=== PATIENT | male | born 1960 | race Caucasian/White ===

== ENCOUNTER 2023-10-28 09:24 | Emergency (ER) | payer MEDICARE, OTHER, MEDICAID ==
[2023-10-28] MEDS: DUONEB 0.5-3 MG/3 ml Neb IH ONE (09:32)
[2023-10-28] MEDS ORDERED: DUONEB 0.5-3 MG/3 ml Neb IH ONE (09:32)
[2023-10-28 09:40] VITALS: TEMP 97.8
--- NOTE | 2023-10-28 09:41 | ERPHSYRPT ---
- History of Present Illness Time Seen by Provider: 10/28/23 09:31 Source: patient, family Exam Limitations: no limitations Physician History: Pt became short of breath last pm and came into ER today. He has a Hx of COPD and has been trying to cut down/quit smoking . No CP, No Hx CAD. No hx trauma. No fever. Discussed risks/benefits with pt and available family for testing/ Tx , CBC, CMP, BNP, Trop, Lactate, CXR, EKG, UA, Duoneb, Solumedrol, IV, rocephin, and they wish to proceed and so these are ordered. Results discussed with pt and family. Timing/Duration: yesterday Activities at Onset: none Severity of Dyspnea-Max: moderate Severity of Dyspnea-Current: moderate Possible Cause: occasional episodes, chronic episodes Modifying Factors: Improves With: albuterol inhaler Associated Symptoms: cough, wheezing Allergies/Adverse Reactions: No Known Drug Allergies Allergy (Unverified 10/28/23 09:25) Home Medications: Albuterol 8 gm Mdi Hfa [Ventolin Hfa MDI] 8 gm IH UD 10/28/23 [History] - Review of Systems Constitutional: No Fever, No Chills Eyes: No Symptoms Ears, Nose, & Throat: No Symptoms Respiratory: Cough, Dyspnea Cardiac: No Chest Pain, No Edema, No Syncope Abdominal/Gastrointestinal: No Abdominal Pain, No Nausea, No Vomiting, No Anat rrhea Genitourinary Symptoms: No Dysuria Musculoskeletal: No Back Pain, No Neck Pain Skin: No Rash Neurological: No Dizziness, No Focal Weakness, No Sensory Changes Psychological: No Symptoms Endocrine: No Symptoms Hematologic/Lymphatic: No Symptoms Immunological/Allergic: No Symptoms All Other Systems: Reviewed and Negative - Past Medical History Pertinent Past Medical History: Yes Respiratory History: COPD - Past Surgical History Past Surgical History: No - Nursing Vital Signs Nursing Vital Signs: Initial Vital Signs Pulse Rate 96 H 10/28/23 09:36 Respiratory Rate 24 10/28/23 09:36 O2 Sat by Pulse Oximetry 90 L 10/28/23 09:36 Pain Scale Pain Intensity 0 - Physical Exam General Appearance: no apparent distress, alert Eye Exam: PERRL/EOMI Neck Exam: normal inspection, supple Respiratory Exam: airway intact, rhonchi, wheezing Cardiovascular/Chest Exam: normal heart sounds, regular rate/rhythm Abdominal/Gastrointestinal Exam: soft, No tenderness, No distention, No mass Extremity Exam: non-tender, normal range of motion, normal inspection, no calf tenderness, no pedal edema Peripheral Pulses Exam: carotid (R): 2+, carotid (L): 2+, femoral (R): 2+, femoral (L): 2+, dorsalis-pedis (R): 2+, dorsalis-pedis (L): 2+ Neurologic Exam: alert, oriented x 3, cooperative, capsule filler II-XII nml as tested, nor mal mood/affect, nml cerebellar function, nml station & gait, sensation nml, No motor deficits Skin Exam: normal color, warm, No dry SpO2 Interpretation: borderline oxygenation SpO2: 89 O2 Delivery: Room Air - Course Nursing assessment & vital signs reviewed: Yes EKG Interpreted by Me: Sinus Rhythm, NORMAL AXIS, NORMAL INTERVALS, Non-specific ST Changes, Other (old Q) - Radiology Exams Chest X-ray Interpretation: Interpreted by me, Reviewed by me, Other (calc nodules) - CT Exams Chest CT Interpretation: Tele-radiologist Report, Other (multiple calcified nodules rad concern for TB) Ordered Tests: Active Orders 24 hr Category Date Time Status Blocker And Polisher STAT Care 10/28/23 09:33 Active EKG-ER Only STAT Care 10/28/23 09:31 Active IV Insertion STAT Care 10/28/23 09:31 Active Pulse Oximetry (ED) STAT Care 10/28/23 09:31 Active CHEST 1 VIEW (PORTABLE) Stat Exams 10/28/23 10:08 Taken CHEST WITH CONTRAST [CT] Stat Exams 10/28/23 10:50 Completed CBC W DIFF Stat Lab 10/28/23 09:45 Completed CMP Stat Lab 10/28/23 09:45 Completed CULTURE,URINE Stat Lab 10/28/23 11:53 Received D-DIMER QUANTITATIVE Stat Lab 10/28/23 09:45 Completed Lactic Acid Stat Lab 10/28/23 09:31 Completed NT PRO BNPII Stat Lab 10/28/23 09:45 Completed TROPONIN Q4H Lab 10/28/23 09:45 Completed TROPONIN Q4H Lab 10/28/23 12:50 Completed TROPONIN Q4H Lab 10/28/23 17:45 Ordered UA W/RFX UR CULTURE Stat Lab 06/09/24 11:53 Completed Respiratory Therapy Assessment DAILY RT 10/28/23 09:36 Completed Medication Summary Generic Name Dose Route Start Last Admin Trade Name Christine PRN Reason Stop Dose Admin Sodium Chloride 1,000 mls @ 100 mls/hr 10/28/23 09:45 10/28/23 11:16 Sodium Chloride 0.9% 1000 Ml IV 11/27/23 09:44 100 mls/hr .Q10H MER Administration Discontinued Medications Generic Name Dose Route Start Last Admin Trade Name Christine PRN Reason Stop Dose Admin Albuterol/Ipratropium 3 ml 10/28/23 09:31 10/28/23 09:32 Ipratropium/Albuterol Sulfate 3 Ml Ampul.Neb IH 10/28/23 09:32 3 ml STAT ONE Administration Albuterol/Ipratropium Confirm 10/28/23 09:32 Ipratropium/Albuterol Sulfate 3 Ml Ampul.Neb Administered 10/28/23 09:33 Dose 3 ml IH .STK-MED ONE Methylprednisolone Sodium 0 mg 10/28/23 09:31 10/28/23 11:17 Succinate 125 mg/ Sterile IV 10/28/23 09:32 125 mg Water 2 ml STAT ONE Administration Ceftriaxone Sodium 1 gm in 100 mls @ 200 mls/hr 10/28/23 13:45 10/28/23 14:32 Rocephin 1 Gm / 100 Ml Nacl IV 10/28/23 14:14 Infused STAT ONE Infusion Ceftriaxone Sodium Confirm 10/28/23 13:49 Rocephin 1 Gm / 100 Ml Nacl Administered 10/28/23 13:50 Dose 1 gm in 100 mls @ ud IV .STK-MED ONE Methylprednisolone Sodium Succinate Confirm 10/28/23 11:09 Methylprednis Sod Succ 125 Mg/2 Ml Vial Administered 10/28/23 11:10 Dose 125 mg .ROUTE .STK-MED ONE Sterile Water Confirm 10/28/23 11:09 Water For Injection,Sterile 10 Ml Vial Administered 10/28/23 11:10 Dose 10 ml IJ .STK-MED ONE Lab/Rad Data: Laboratory Result Diagrams 10/28/23 09:45 10/28/23 09:45 Laboratory Results 10/28/23 10/28/23 10/28/23 Range/Units 12:50 11:53 09:45 WBC (4.23-9.07) x10^3/uL RBC (4.63-6.08) x10^6/uL Hgb (13.7-17.5) g/dL Hct (40.1-51.0) % MCV (79.0-92.2) fL MCH (25.7-32.2) pg MCHC (32.3-36.5) g/dL RDW (11.6-14.4) % Plt Count (163-337) x10^3/uL MPV (9.4-12.4) fL Gran % (34.0-67.9) % Immature Gran % (Auto) (0.001-0.429) % Nucleat RBC Rel Count (0.00-0.2) % Eos # (Auto) (0.04-0.54) x10^3/uL Immature Gran # (Auto) (0.001-0.031) x10^3u/L Absolute Lymphs (auto) (1.32-3.57) x10^3/uL Absolute Monos (auto) (0.30-0.82) x10^3/uL Absolute Nucleated RBC (0.00-0.012) x10^3u/L Lymphocytes % (21.8-53.1) % Monocytes % (5.3-12.2) % Eosinophils % (0.8-7.0) % Basophils % (0.2-1.2) % Absolute Granulocytes (1.78-5.38) x10^3/uL Basophils # (0.01-0.08) x10^3/uL D-Dimer (0.0-0.50) mg/L Sodium (135-145) mmol/L Potassium (3.5-5.1) mmol/L Chloride (98-107) mmol/L Carbon Dioxide (22-30) mmol/L Anion Gap (5-15) MEQ/L BUN (9-20) mg/dL Creatinine (0.66-1.25) mg/dL Estimated GFR ML/MIN Glucose (74-106) mg/dL Lactic Acid (0.4-2.0) Calcium (8.4-10.2) mg/dL Total Bilirubin (0.2-1.3) mg/dL AST (17-59) U/L ALT (0-50) U/L Alkaline Phosphatase (38-126) U/L Troponin I < 0.012 (0.000-0.033) ng/mL NT-Pro-B Natriuret Pep (<300) pg/mL Serum Total Protein (6.3-8.2) g/dL Albumin (3.5-5.0) g/dL Urine Color Yellow (Yellow) Urine Appearance Clear (Clear) Urine pH 5.5 (4.6-8.0) Ur Specific [place] >=1.030 A (1.005-1.030) Urine Protein 30 (Negative) Urine Glucose (UA) Negative (Negative) mg/dL Urine Ketones 15 A (Negative) Urine Blood Moderate A (Negative) Urine Nitrite Negative (Negative) Urine Bilirubin Negative (Negative) Urine Urobilinogen 2.0 A (0.2) mg/dL Ur Leukocyte Esterase Negative (Negative) U Hyaline Cast (Auto) NONE SEEN (0-2) /LPF Urine Microscopic RBC 51-100 A (0-5) /HPF Urine Microscopic WBC 3-5 (0-5) /HPF Ur Epithelial Cells None Seen (None Seen) /HPF Urine Bacteria None Seen (None Seen) /HPF Urine Culture Reflexed YES (NO) Influenza Type A Ag NEGATIVE (NEGATIVE) Influenza Type B Ag NEGATIVE (NEGATIVE) RSV (PCR) NEGATIVE (NEGATIVE) SARS-CoV-2 (PCR) NEGATIVE (NEGATIVE) 10/28/23 10/28/23 10/28/23 Range/Units 09:45 09:45 09:45 WBC (4.23-9.07) x10^3/uL RBC (4.63-6.08) x10^6/uL Hgb (13.7-17.5) g/dL Hct (40.1-51.0) % MCV (79.0-92.2) fL MCH (25.7-32.2) pg MCHC (32.3-36.5) g/dL RDW (11.6-14.4) % Plt Count (163-337) x10^3/uL MPV (9.4-12.4) fL Gran % (34.0-67.9) % Immature Gran % (Auto) (0.001-0.429) % Nucleat RBC Rel Count (0.00-0.2) % Eos # (Auto) (0.04-0.54) x10^3/uL Immature Gran # (Auto) (0.001-0.031) x10^3u/L Absolute Lymphs (auto) (1.32-3.57) x10^3/uL Absolute Monos (auto) (0.30-0.82) x10^3/uL Absolute Nucleated RBC (0.00-0.012) x10^3u/L Lymphocytes % (21.8-53.1) % Monocytes % (5.3-12.2) % Eosinophils % (0.8-7.0) % Basophils % (0.2-1.2) % Absolute Granulocytes (1.78-5.38) x10^3/uL Basophils # (0.01-0.08) x10^3/uL D-Dimer 0.76 H* (0.0-0.50) mg/L Sodium (135-145) mmol/L Potassium (3.5-5.1) mmol/L Chloride (98-107) mmol/L Carbon Dioxide (22-30) mmol/L Anion Gap (5-15) MEQ/L BUN (9-20) mg/dL Creatinine (0.66-1.25) mg/dL Estimated GFR ML/MIN Glucose (74-106) mg/dL Lactic Acid (0.4-2.0) Calcium (8.4-10.2) mg/dL Total Bilirubin (0.2-1.3) mg/dL AST (17-59) U/L ALT (0-50) U/L Alkaline Phosphatase (38-126) U/L Troponin I < 0.012 (0.000-0.033) ng/mL NT-Pro-B Natriuret Pep 472 (<300) pg/mL Serum Total Protein (6.3-8.2) g/dL Albumin (3.5-5.0) g/dL Urine Color (Yellow) Urine Appearance (Clear) Urine pH (4.6-8.0) Ur Specific [place] (1.005-1.030) Urine Protein (Negative) Urine Glucose (UA) (Negative) mg/dL Urine Ketones (Negative) Urine Blood (Negative) Urine Nitrite (Negative) Urine Bilirubin (Negative) Urine Urobilinogen (0.2) mg/dL Ur Leukocyte Esterase (Negative) U Hyaline Cast (Auto) (0-2) /LPF Urine Microscopic RBC (0-5) /HPF Urine Microscopic WBC (0-5) /HPF Ur Epithelial Cells (None Seen) /HPF Urine Bacteria (None Seen) /HPF Urine Culture Reflexed (NO) Influenza Type A Ag (NEGATIVE) Influenza Type B Ag (NEGATIVE) RSV (PCR) (NEGATIVE) SARS-CoV-2 (PCR) (NEGATIVE) 10/28/23 10/28/23 10/28/23 Range/Units 09:45 09:45 09:31 WBC 20.0 H (4.23-9.07) x10^3/uL RBC 5.32 (4.63-6.08) x10^6/uL Hgb 15.9 (13.7-17.5) g/dL Hct 46.6 (40.1-51.0) % MCV 87.6 (79.0-92.2) fL MCH 29.9 (25.7-32.2) pg MCHC 34.1 (32.3-36.5) g/dL RDW 13.2 (11.6-14.4) % Plt Count 317 (163-337) x10^3/uL MPV 9.6 (9.4-12.4) fL Gran % 78.6 H (34.0-67.9) % Immature Gran % (Auto) 0.8 H (0.001-0.429) % Nucleat RBC Rel Count 0.0 (0.00-0.2) % Eos # (Auto) 0.16 (0.04-0.54) x10^3/uL Immature Gran # (Auto) 0.15 H (0.001-0.031) x10^3u/L Absolute Lymphs (auto) 1.84 (1.32-3.57) x10^3/uL Absolute Monos (auto) 2.03 H (0.30-0.82) x10^3/uL Absolute Nucleated RBC 0.00 (0.00-0.012) x10^3u/L Lymphocytes % 9.2 L (21.8-53.1) % Monocytes % 10.2 (5.3-12.2) % Eosinophils % 0.8 (0.8-7.0) % Basophils % 0.4 (0.2-1.2) % Absolute Granulocytes 15.72 H (1.78-5.38) x10^3/uL Basophils # 0.08 (0.01-0.08) x10^3/uL D-Dimer (0.0-0.50) mg/L Sodium 138 (135-145) mmol/L Potassium 4.2 (3.5-5.1) mmol/L Chloride 104 (98-107) mmol/L Carbon Dioxide 22 (22-30) mmol/L Anion Gap 15.9 H (5-15) MEQ/L BUN 17 (9-20) mg/dL Creatinine 0.82 (0.66-1.25) mg/dL Estimated GFR 97.5 ML/MIN Glucose 113 H (74-106) mg/dL Lactic Acid 0.7 (0.4-2.0) Calcium 9.1 (8.4-10.2) mg/dL Total Bilirubin 1.10 (0.2-1.3) mg/dL AST 25 (17-59) U/L ALT 23 (0-50) U/L Alkaline Phosphatase 114 (38-126) U/L Troponin I (0.000-0.033) ng/mL NT-Pro-B Natriuret Pep (<300) pg/mL Serum Total Protein 8.4 H (6.3-8.2) g/dL Albumin 4.4 (3.5-5.0) g/dL Urine Color (Yellow) Urine Appearance (Clear) Urine pH (4.6-8.0) Ur Specific [place] (1.005-1.030) Urine Protein (Negative) Urine Glucose (UA) (Negative) mg/dL Urine Ketones (Negative) Urine Blood (Negative) Urine Nitrite (Negative) Urine Bilirubin (Negative) Urine Urobilinogen (0.2) mg/dL Ur Leukocyte Esterase (Negative) U Hyaline Cast (Auto) (0-2) /LPF Urine Microscopic RBC (0-5) /HPF Urine Microscopic WBC (0-5) /HPF Ur Epithelial Cells (None Seen) /HPF Urine Bacteria (None Seen) /HPF Urine Culture Reflexed (NO) Influenza Type A Ag (NEGATIVE) Influenza Type B Ag (NEGATIVE) RSV (PCR) (NEGATIVE) SARS-CoV-2 (PCR) (NEGATIVE) - Progress Progress: improved, re-examined Air Movement: good Progress Note: 10/28/23 10:24 discussed risk/benefit of PE protocol CT with pt and available family and they wish to proceed. 10/28/23 14:02 called / consulted with hospitalist Dr. Lopez, and he is consulted pulmonary to see if pt can be seen here. 10/28/23 14:[address] [facility] transfer center and they accepted as auto accept for transfer. due to need for ID and Pulm Sx. 10/28/23 14:47 Blood Culture(s) Obtained: No Antibiotics given: Yes Counseled pt/family regarding: lab results, diagnosis, need for follow-up, rad results Medical Desision Making - Independent Historian Additional History obtained from: Family - Discussion of managment Care discussed with:: hospitalist Reviewed:: Test results, Need for additional workup Agreed on:: Treatment plan, need for follow-up - Diagnostic Testing Diagnostic test were ordered, analyzed, and reviewed by me: Yes Radiological Interpretation: Interpreted by me, Reviewed by me - Risk of complications The pt has a mod risk of morbidity or mortality based on: Need for prescription drug management The pt has a high risk of morbidity or mortality based on: Decision regarding hospitilization or escalation of hosp level of care - Departure Departure Disposition: Transfer Clinical Impression: calcified pulm nodules with TB concern, COPD exacerbation, new O2 requirement Condition: Good Critical Care Time: No Referrals: NORY SULTANA DO [Primary Care Provider] - Follow up/PCP as directed Instructions: Shortness of Breath (Dyspnea) (DC), Exacerbation of COPD (DC), Chronic Obstructive Pulmonary Disease
[2023-10-28 09:58] LABS: Absolute Neutrophil Ct (ANC) 15.72 x10^3/uL (1.78-5.38); BASOPHIL % 0.4 % (0.2-1.2); Basophil (Absolute #) 0.08 x10^3/uL (0.01-0.08); Eosinophil % 0.8 % (0.8-7.0); Eosinophil (Absolute #) 0.16 x10^3/uL (0.04-0.54); Hematocrit 46.6 % (40.1-51.0); Hemoglobin 15.9 g/dL (13.7-17.5); IMMATURE GRAN # 0.15 x10^3u/L (0.001-0.031); IMMATURE GRAN % 0.8 % (0.001-0.429); Lymphocyte (Absolute #) 1.84 x10^3/uL (1.32-3.57); Lymphocytes % 9.2 % (21.8-53.1); Mean Cell Volume 87.6 fL (79.0-92.2); Mean Corpuscular Hemoglobin 29.9 pg (25.7-32.2); Mean Corpuscular Hgb Concent. 34.1 g/dL (32.3-36.5); Mean Platelet Volume 9.6 fL (9.4-12.4); Monocyte (Absolute #) 2.03 x10^3/uL (0.30-0.82); Monocytes % 10.2 % (5.3-12.2); Neutrophil % 78.6 % (34.0-67.9); Platelet Count 317 x10^3/uL (163-337); Red Blood Count 5.32 x10^6/uL (4.63-6.08); Red Cell Distribution Width 13.2 % (11.6-14.4)
[2023-10-28 10:09] LABS: ALBUMIN 4.4 g/dL (3.5-5.0); ANION GAP 15.9 MEQ/L (5-15); BILIRUBIN,TOTAL 1.1 mg/dL (0.2-1.3); Calcium 9.1 mg/dL (8.4-10.2); Creatinine 1 0.82 mg/dL (0.66-1.25); EST GLOMERULAR FILTRATION RATE 97.5 ML/MIN; Potassium 4.2 mmol/L (3.5-5.1); Total Protein 8.4 g/dL (6.3-8.2)
[2023-10-28 10:32] LABS: INFLUENZA A NEGATIVE (NEGATIVE); INFLUENZA B NEGATIVE (NEGATIVE); RESPIRATORY SYNCTIAL VIRUS NEGATIVE (NEGATIVE); SARS-CoV-2 Xpert Express NEGATIVE (NEGATIVE)
[2023-10-28] MEDS ORDERED: solu-MEDROL ONE (11:09)
[2023-10-28] MEDS ORDERED: Sterile H2O 10 ml IJ ONE (11:09)
[2023-10-28] MEDS ORDERED: Sodium Chloride 0.9% 1000 ML 1,000 ML ONE (11:09)
[2023-10-28] MEDS: Sodium Chloride 0.9% 1000 ML 1,000 ML IV SCH (11:16)
[2023-10-28] MEDS: solu-MEDROL 125 MG, Sterile H2O 10 ml 2 ML IV ONE (11:17)
[2023-10-28 12:06] LABS: ADD URINE CULTURE? YES (NO); Appearance Clear (Clear); Bacteria None Seen /HPF (None Seen); Bilirubin Negative (Negative); Blood Moderate (Negative); Epithelial Cells None Seen /HPF (None Seen); Glucose, Urine Negative (Negative); Hyaline Casts NONE SEEN /LPF (0-2); Ketones 15 (Negative); Leukocyte Esterase Negative (Negative); Nitrite Negative (Negative); Ph 5.5 (4.6-8.0); Protein,Urine Dip 30 (Negative); RBC 51-100 /HPF (0-5); Specific Gravity >=1.030 (1.005-1.030)
--- NOTE | 2023-10-28 12:10 | XRAY ---
CLINICAL HISTORY: short of breath elevated D dimer COMPARISON: None. TECHNIQUE: Axial CT images of the chest were acquired with the administration of intravenous contrast. Coronal and sagittal reconstructions were obtained. One of the following dose reduction techniques were utilized for this exam: Automated exposure control, adjustment of the mA and/or kV according to patient size, use of iterative reconstruction. FINDINGS: No definite evidence of acute thromboembolism was seen. Multiple tiny pulmonary nodules were seen scattered in both lung craig, most of them are calcific and showed upper lobar predominance. Multiple right lung peripherally arranged tree-in-bud nodular thickening, could be respiratory bronchiolitis. Bilateral upper lung emphysematous changes more on the right side. Multiple enlarged mediastinal lymphadenopathies, the largest noted in the right para-tracheal region measure 19x10 mm. Bilateral enlarged axillary, reactive-looking lymphadenopathy. The scanned pulmonary parenchyma shows no definite consolidative lesions. No free or encysted pleural effusion. Heart size is normal, and there is no pericardial effusion. There is no definite mass lesion in the chest wall. The scanned upper abdomen showed a few tiny left renal cysts and, a tiny left hepatic hypodense non-enhancing lesion, which could be a cyst. Thoracic spine degenerative changes. IMPRESSION: 1. No definite evidence of acute thromboembolism. 2. Multiple tiny pulmonary nodules were seen scattered in both lung craig, most of them are calcific and showed upper lobar predominance., this raises the possibility of Milliary TB infection, and clinical correlation is needed. 3. Multiple right lung peripherally arranged tree-in-bud nodular thickenings, could be TB bronchiolitis. 4. Mediastinal lymphadenopathy. 5. Bilateral upper lung emphysematous changes more on the right side. [facility] ER was called at [phone] at 10:59 AM EST, 10/28/2023 an results were verbally communicated to Lokesh Perry Electronically Signed by: Emiliano Back MD. (10/28/2023 12:05:33 EDT)
[2023-10-28] MEDS ORDERED: ROCEPHIN 1 GM / 100 ML NaCl 1 GM/100 ML IVPB IV ONE (13:49)
[2023-10-28] MEDS: ROCEPHIN 1 GM / 100 ML NaCl 1 GM/100 ML IVPB IV ONE (13:52)
--- NOTE | 2023-10-28 19:27 | XRAY ---
Indication: Short of breath. COPD. Comparison: None Portable chest hyperinflated with subtle hazy right base interstitial alveolar opacities. Remaining heart and lungs unremarkable with a few incidental tiny calcified granulomas. Bony thorax intact with osteopenia and mild degenerative changes.
[2023-10-28 20:30] VITALS: O2SAT 98
[2023-10-28 21:18] VITALS: BP 164/97; PULSE 82; RESP 25
== END 2023-10-28 21:22 | disposition short-term general hospital (02) ==
LOC: ED 09:24
DX: J44.1 Chronic obstructive pulmonary disease with (acute) exacerbation (principal); R91.8 Other nonspecific abnormal finding of lung field; R06.02 Shortness of breath; Z79.899 Other long term (current) drug therapy
CPT/HCPCS: 0241U; 36000; 36415; 71045; 71260; 80053; 81001; 82947; 83605; 83880; 84484; 85025; 85379; 86480; 87086; 93005; 93041; 94640; 94760; 96365; 96374; 99285; J0696; J2919; A9270-GY